=== PATIENT | female | born 1965 | race Caucasian/White ===

== ENCOUNTER 2021-09-20 09:13 | Outpatient (CLI) | payer BC, SELFPAY ==
[2021-09-20 11:20] LABS: Thyroid Stimulating Hormone 0.179 uIU/mL (0.465-4.680)
[2021-09-23 05:25] LABS: Triiodothyronine T3 Free 3.3 pg/mL (2.3-4.2)
== END 2021-09-20 09:14 | disposition home or self-care (01) ==
PROVIDERS: PCP Physician Assistant Medical; Visit Provider Internal Medicine Endocrinology, Diabetes & Metabolism
DX: E04.9 Nontoxic goiter, unspecified (principal); E05.90 Thyrotoxicosis, unspecified without thyrotoxic crisis or storm
CPT/HCPCS: 36415; 84439; 84443; 84481

== ENCOUNTER 2021-12-21 12:53 | Outpatient (CLI) | payer BC, SELFPAY ==
[2021-12-21 14:22] LABS: Thyroid Stimulating Hormone 0.236 uIU/mL (0.465-4.680)
[2021-12-21 15:37] LABS: Free T4 Free Thyroxine 0.84 ng/mL (0.78-2.19)
[2021-12-23 15:20] LABS: Triiodothyronine T3 Free 3.2 pg/mL (2.3-4.2)
== END 2021-12-21 12:54 | disposition home or self-care (01) ==
LOC: ANHLAB 12:55
PROVIDERS: PCP Physician Assistant Medical; Visit Provider Internal Medicine Endocrinology, Diabetes & Metabolism
DX: E04.9 Nontoxic goiter, unspecified (principal); E05.90 Thyrotoxicosis, unspecified without thyrotoxic crisis or storm; E04.1 Nontoxic single thyroid nodule
CPT/HCPCS: 36415; 84439; 84443; 84481

== ENCOUNTER 2021-12-25 12:56 | Outpatient (CLI) | payer BC, SELFPAY ==
--- NOTE | ~2021-12-25 | US_ITS ---
EXAMINATION: US thyroid DATE: 12/25/2021 13:31 INDICATION: Nontoxic single thyroid nodule. TECHNIQUE: Multiple ultrasound images of the thyroid were obtained. COMPARISON: None. FINDINGS: The right thyroid lobe measures 6.0 x 2.1 cm. The left thyroid lobe measures 5.0 x 1.0 cm. In the r ight thyroid lobe, there is a 3.6 cm mixed solid and cystic, hypoechoic, wider than tall nodule with smooth margin without echogenic foci (TI-RADS TR3). In the right thyroid lobe, there is a 1.3 cm pred ominantly solid, hypoechoic, wider than tall nodule with smooth margin without echogenic foci (TR4). In the left thyroid lobe, there is a 1.2 cm predominantly solid, isoechoic, wider than tall nodule wi th ill-defined margin without echogenic foci (TR3). There are multiple subcentimeter nodules in the t hyroid. IMPRESSION: 1. Multinodular goiter. Ultrasound-guided fine-needle aspiration of the 3.6 cm right thyroid nodule i s recommended. Reviewed, dictated and finalized at location A. IMPRESSION: 1. Multinodular goiter. Ultrasound-guided fine-needle aspiration of the 3.6 cm right thyroid nodule is recommended.
== END 2021-12-25 12:57 | disposition home or self-care (01) ==
LOC: ANHIMG 12:57
PROVIDERS: PCP Physician Assistant Medical; Visit Provider Internal Medicine Endocrinology, Diabetes & Metabolism
DX: E05.90 Thyrotoxicosis, unspecified without thyrotoxic crisis or storm (principal); E04.2 Nontoxic multinodular goiter
CPT/HCPCS: 76536

== ENCOUNTER 2022-02-04 14:02 | Outpatient (CLI) | payer BC, SELFPAY ==
--- NOTE | ~2022-02-04 | NM_ITS ---
EXAMINATION: NM thyroid scan w uptake DATE: 02/05/2022 14:54 INDICATION: Subclinical hyperthyroidism. COMPARISON: Ultrasound 12/25/2021 TECHNIQUE: 0.342 mCi I-123 was administered orally. Scintigraphic images of the thyroid gland were o btained at 24 hours. Thyroid uptake was calculated by the technologist. FINDINGS: The thyroid uptake is 25% (normal 10-30%), with the right lobe measuring 21% uptake and the left 4%. The right thyroid lobe is larger than the left by ultrasound. There is no focal area of decreased or increased activity to suggest hypofunctioning or hyperfunctioning nodule. IMPRESSION: 1. Normal 24-hour iodine uptake. Reviewed, dictated and finalized at location A.
== END 2022-02-04 14:03 | disposition home or self-care (01) ==
PROVIDERS: PCP Physician Assistant Medical; Visit Provider Internal Medicine Endocrinology, Diabetes & Metabolism
DX: E05.90 Thyrotoxicosis, unspecified without thyrotoxic crisis or storm (principal)
CPT/HCPCS: 78014; A9516

== ENCOUNTER 2022-06-26 11:28 | Outpatient (CLI) | payer BC, SELFPAY ==
[2022-06-26 11:58] LABS: HDL Direct 67 mg/dL
[2022-06-26 12:10] LABS: LDL Cholesterol Direct 115 mg/dL
[2022-06-26 12:18] LABS: Free T4 Free Thyroxine 0.86 ng/mL (0.78-2.19)
[2022-06-26 12:30] LABS: Thyroid Stimulating Hormone 0.247 uIU/mL (0.465-4.680)
[2022-07-03 05:49] LABS: Triiodothyronine T3 Free 3.5 pg/mL (2.3-4.2)
== END 2022-06-26 11:29 | disposition home or self-care (01) ==
LOC: ANHLAB 11:28
PROVIDERS: PCP Physician Assistant Medical; Visit Provider Internal Medicine Endocrinology, Diabetes & Metabolism
DX: E04.1 Nontoxic single thyroid nodule (principal); E05.90 Thyrotoxicosis, unspecified without thyrotoxic crisis or storm; E04.9 Nontoxic goiter, unspecified
CPT/HCPCS: 36415; 83718; 83721; 84439; 84443; 84481

== ENCOUNTER 2022-12-19 10:58 | Outpatient (CLI) | payer BC, SELFPAY ==
[2022-12-19 12:39] LABS: Thyroid Stimulating Hormone 0.277 uIU/mL (0.465-4.680)
[2022-12-19 12:55] LABS: Free T4 Free Thyroxine 1.16 ng/mL (0.78-2.19)
[2022-12-22 08:10] LABS: Triiodothyronine T3 Free 3.4 pg/mL (2.3-4.2)
== END 2022-12-19 10:59 | disposition home or self-care (01) ==
LOC: ANHLAB 11:00
PROVIDERS: PCP Physician Assistant Medical; Visit Provider Internal Medicine Endocrinology, Diabetes & Metabolism
DX: E04.1 Nontoxic single thyroid nodule (principal); E05.90 Thyrotoxicosis, unspecified without thyrotoxic crisis or storm
CPT/HCPCS: 36415; 84439; 84443; 84481

== ENCOUNTER 2023-07-14 17:11 | Outpatient (CLI) | payer BC, SELFPAY ==
--- NOTE | ~2023-07-14 | US_ITS ---
EXAMINATION: US thyroid DATE: 07/14/2023 18:19 INDICATION: Nontoxic thyroid nodules. TECHNIQUE: Multiple ultrasound images of the thyroid were obtained. COMPARISON: Thyroid ultrasound 12/25/2021 FINDINGS: The right thyroid lobe measures 4.9 x 1.7 x 2.4 cm. The left thyroid lobe measures 4.4 x 1.1 x 1.7 c m. In the right thyroid lobe, there is a 3.8 cm mixed cystic and solid, hypoechoic, wider than tall nodule with ill-defined margin without echogenic foci (TI-RADS TR3), stable from 12/25/21. In the left thyroid lobe, there is a 13 mm mixed cystic and solid, isoechoic, wider than tall nodule with ill-de fined margin without echogenic foci (TR2). There are multiple subcentimeter nodules in the thyroid. IMPRESSION: 1. Multinodular goiter. Ultrasound-guided aspiration of the 3.8 cm right thyroid nodule is recommende d if not previously performed. Reviewed, dictated and finalized at location A. IMPRESSION: 1. Multinodular goiter. Ultrasound-guided aspiration of the 3.8 cm right thyroi d nodule is recommended if not previously performed.
== END 2023-07-14 17:12 | disposition home or self-care (01) ==
LOC: ANHIMG 17:13
PROVIDERS: PCP Physician Assistant Medical; Visit Provider Internal Medicine Endocrinology, Diabetes & Metabolism
DX: E04.2 Nontoxic multinodular goiter (principal)
CPT/HCPCS: 76536

== ENCOUNTER 2023-07-24 15:12 | Outpatient (CLI) | payer BC, SELFPAY ==
[2023-07-24 17:31] LABS: Free T4 Free Thyroxine 0.87 ng/mL (0.78-2.19)
[2023-07-24 17:46] LABS: Thyroid Stimulating Hormone 0.284 uIU/mL (0.465-4.680)
[2023-07-26 02:19] LABS: Triiodothyronine T3 Free 3.4 pg/mL (2.3-4.2)
== END 2023-07-24 15:13 | disposition home or self-care (01) ==
LOC: ANHWCLAB 15:13
PROVIDERS: PCP Physician Assistant Medical; Visit Provider Internal Medicine Endocrinology, Diabetes & Metabolism
DX: E04.9 Nontoxic goiter, unspecified (principal); E05.90 Thyrotoxicosis, unspecified without thyrotoxic crisis or storm
CPT/HCPCS: 36415; 84439; 84443; 84481

== ENCOUNTER 2024-01-23 11:42 | Outpatient (CLI) | payer BC, SELFPAY ==
[2024-01-23 12:50] LABS: Free T4 Free Thyroxine 0.89 ng/mL (0.78-2.19)
[2024-01-23 12:58] LABS: Thyroid Stimulating Hormone 0.579 uIU/mL (0.465-4.680)
[2024-01-24 09:34] LABS: Triiodothyronine T3 Free 3.6 pg/mL (2.3-4.2)
== END 2024-01-23 11:43 | disposition home or self-care (01) ==
LOC: ANHLAB 11:43
PROVIDERS: PCP Physician Assistant Medical; Visit Provider Internal Medicine Endocrinology, Diabetes & Metabolism
DX: E04.9 Nontoxic goiter, unspecified (principal); E05.90 Thyrotoxicosis, unspecified without thyrotoxic crisis or storm
CPT/HCPCS: 36415; 84439; 84443; 84481

== ENCOUNTER 2024-07-21 10:57 | Outpatient (CLI) | payer BC, SELFPAY ==
[2024-07-21 12:09] LABS: Thyroid Stimulating Hormone 0.368 uIU/mL (0.465-4.680)
--- OUTSIDE RECORDS SUMMARY | 2024-07-21 12:42 | XMS_ITS | Encounter Summary ---
Author Organization [facility] Address [address] [place] [address] Care Team Providers Care Business Applications Analyst Name Role Phone Marguerite Alonso PA-C Primary Care Provider [phone]- [phone] Halima Peralta Primary Care Provider Encounter Details Date Type Department Care Team (Late st Contact Info) Description 09/19/2018 Abstract [facility] CONVERSION [address] [place], [place] [id number] , Generic ConversionMD Social History Tobacco Use Types Packs/Day Years Used Date Smoking Tobacco: Never Assessed Comments Unknown Sex and Gender Information Value Date Recorded Sex Assigned at Not on file Legal Sex Female 4:17 PM CDT Gender Identity Female 07/04/2021 9:16 AM CDT Sexual Orientation Straight 07/04/2021 9: 16 AM CDT documented as of this encounter Plan of Treatment Not on file documented as of this encounter Visit Diagnoses Not on filedocumented in this encounter Care Teams Business Applications Analyst Relationship Specialty Start Date End Date Marguerite Alonso PA-C PCP - General 02/20/16 01/30/23 Halima Peralta PA [address] [place] [id number] PCP - General 01/31/23 documented as of this encounter
--- OUTSIDE RECORDS SUMMARY | 2024-07-21 12:42 | XMS_ITS | Clinical Summary ---
Author Organization [facility] Address [address] [place] [address] Care Team Providers Care Cashier Greeter Name Role Phone Nina Peralta Primary Care Provider Allergies No known active allergies Medications vitamin D2, ergocalciferol, (DRISDOL) 1.25 mg capsule Take 1 capsule (1.25 mg total) by mouth every 30 (thirty) days. Active hydroxychloroqu ine (PLAQUENIL) 200 MG tablet Take 1 tablet (200 mg total) by mouth 2 (two) times daily. Active Ivermectin 1 % Cream Apply topically as needed. Active ivermectin (STROMECTOL) 3 MG Tab tablet Take 4 tablets (12 mg total) by mouth as needed. Active mulitvitamin (THERA) tablet Take 1 tablet by mouth. Active sertraline (ZOLOFT) 25 MG tablet Take 1 tablet (25 mg total) by mouth daily. Active Active Problems No known active problems Immunizations Name Administration Dates Next Due MODERNA COVID-19 (12+) MRNA, LNP-S, PF, 100 MCG/ 0.5 ML DOSE 08/01/2020,07/04/2020 Family History Medical History Relation Comments Cancer Maternal Grandmother LEUKEMIA Relation Status Comments Maternal Grandmother Social History Tobacco Use Types Packs/Day Years Used Date Smoking Tobacco: Never Smokeless Tobacco: Never Tobacco Cessation:Counseling Given: No Alcohol Use Standard Drinks/Week Comments Never 0 (1 standard drink = 0.6 oz pur e alcohol) PHQ-2 Answer Date Recorded Patient Health Questionnaire-2 Score 0 03/21/2023 Comments No Sex and Gender Information Value Date Recorded Sex Assigned at Not on file Legal Sex Female 4:17 PM CDT Gender Identity Female 07/04/2021 9:16 AM CDT Sexual Orientation Straight 07/04/2021 9: 16 AM CDT Last Filed Vital Signs Vital Sign Reading Time Taken Comments Blood Pressure 142/89 03/21/2023 3:16 PM CONCESSION ATTENDANT Pulse 76 03/21/2023 3:11 PM CONCESSION ATTENDANT Temperature 37.3 C (99.2 F) 03/21/2023 3:11 PM CONCESSION ATTENDANT Respiratory Rate 18 03/21/2023 3:11 PM CONCESSION ATTENDANT Oxygen Saturation 98% 03/21/2023 3:11 PM CONCESSION ATTENDANT Inhaled Oxygen Concentration - - Weight 91.6 kg (202 lb) 03/21/2023 3:11 PM CONCESSION ATTENDANT Height 165.1 cm (5' 5 ) 03/21/2023 3:11 PM CONCESSION ATTENDANT Body Mass Index 33.61 03/21/2023 3:11 PM CONCESSION ATTENDANT Plan of Treatment Health Maintenance Due Date Last Done Comments Cervical Cancer Screening Pa p Smear (Age 30 to 64) Every 3 Years 1965 Colorectal Cancer Screening Colonoscopy (10 Years) 1965 Annual Physical 1968 Hepatitis C 07/01/1983 DTaP, Tdap and Td Vaccines ( 1 - Tdap) 1984 Hepatitis B Vaccines (1 of 3 - + 3-dose series) 1984 Cervical Cancer Screening Pa p with HPV Testing (Age 30 to 64) Every 5 Years 07/01/1995 Cervical Cancer Screening wi th HPV 07/01/1995 Zoster Vaccines (1 of 2) 07/01/2015 COVID-19 Vaccine (2023-2 5 season) 2023 08/01/2020, 07/04/2020 PHQ-2 (Physician Everly) 04/14/2024 03/21/2023 Mammogram Screening 02/18/2025 02/18/2023, 02/08/2021 Meningococcal B Vaccine Aged Out No l onger eligible based on patient's age to complete this topic Meningococcal Vaccine Aged Out No amaury jose r eligible based on patient's age to complete this topic Pneumococcal Vaccine: Pediatrics (0 to 5 Years) and At-Risk Patients (6 to 64 Years) Aged Out No longer eligible b ased on patient's age to complete this topic RSV Immunizations Under 20 Months Aged Out No longer eligible b ased on patient's age to complete this topic Procedures Procedure Name Priority Date/Time Associated Diagnosis Comments MG SCREENING W MANUELA SHARLENE DIGI Routine 02/18/2023 2:30 PM CONCESSION ATTENDANT Encounter for screening mammogram for malignant neoplasm of breast from Last 3 Months or Most Recently Relevant to Health Maintenance Results * MG SCREENING W MANUELA SHARLENE DIGI (02/18/2023 2:30 PM CONCESSION ATTENDANT) Anatomical Region Laterality Modality Breast Bilateral Mammography 02/18/2023 2:47 PM CONCESSION ATTENDANT Narrative 02/18/2023 2:49 PM CONCESSION ATTENDANT Examination: Screening bilateral mammogram Exam Date/Time: 02/18/2023 2:18 PM Clinical history: No current complaints. Comparison: 02/08/2021 Technique: Digital screening mammography of both breasts was performed. Breast tomosynthesis acquisitions were obtained and reviewed. This study was read with the assistance of a computer-aided detection system. Tissue density: There are scattered areas of fibroglandular density. Findings: No suspicious masses, malignant appearing calcifications, skin thickening or other abnormalities are present. No significant change from the prior exam. IMPRESSION: No suspicious mammographic findings. Recommendation: 1. Routine Screening, Bilateral Assessment: ACR BI-RADS 2 - BENIGN FINDING(S) Ordered By: NINA PERALTA Interpreted By: Cruz Garcia, 02/18/2023 2:47 PM Nina ROY MAMMO Final Result from Last 3 Months or Most Recently Relevant to Health Maintenance Insurance [facility] Care Teams Cashier Greeter Relationship Specialty Start Date End Date Nina Peralta PA [address] [place] [phone] PCP - General 01/31/23
--- OUTSIDE RECORDS SUMMARY | 2024-07-21 12:42 | XMS_ITS | Data Portability ---
Author Organization [facility] Address [address] [place] [address] Assessment No assessment recorded. Plan of Treatment Reminders Order Date Submit Date Provider Last Modified By Organization Details Last Modified Time Details Appointments None recorded. Lab HPV E6+E7 mRNA, qualitative PCR, cervix 2023 024 [facility], [address] [place], [address], 4 09:15:23 pap, LB 2023 024 [facility], [address] [place], [address], 4 09:33:16 Referral None recorded. Procedures None recorded. Surgeries None recorded. Imaging None recorded. Medication Orders None recorded. Patient TargetsNo targets recorded. Patient Instructions Encounter Date Encounter Id Patient Instructions Last Modified By Organization Details Last Modified Time 03/22/2024 [id number] body mass index: care instructions [email or web address] Not available 03/22/2024 16:30:24 Reason for Referral None Reported. Results Created Date Observation Date Name Description Value Unit Range Abnormal Flag Note LastModifiedBy Organization Detail LastModifiedTime 03/22/20 24 03/24/2024 HPV HIGH RISK HPV high risk Negati ve negati ve normal The HPV High Risk assay is inten ded for use as co-te sting with cytol ogy and not as a subst itute for regul ar cervi stephane cytol ogy scree venita. This assay is not inten ded for use as a scree venita devic e for women under age 30 with mikal l cervi stephane cytol ogy. Not Available [employer] [address] [place], [address], 03/25/2024 09:15:23 03/22/2004/02/2024 THINP REP TIS PAP clinical information: normal None given Not Available [place] [address] [place], [address], 04/02/2024 09:33:16 03/22/20 24 04/02/2024 THINP REP TIS PAP LMP: normal NONE GIVEN Not Available [address] [address] [place], [address], 04/02/2024 09:33:16 03/22/20 24 04/02/2024 THINP REP TIS PAP prev. Pap: normal NONE GIVEN Not Available [address] [address] [place], [address], 04/02/2024 09:33:16 03/22/20 24 04/02/2024 THINP REP TIS PAP prev. BX: normal NONE GIVEN Not Available [address] [address] [place], [address], 04/02/2024 09:33:16 03/22/20 24 04/02/2024 THINP REP TIS PAP source: normal Cervi x Not Available [address] [address] [place], [address], 04/02/2024 09:33:16 03/22/20 24 04/02/2024 THINP REP TIS PAP statement of adequacy: Speci men proce ssed and exami otf, but unsat isfac tory for evalu ation due to an insuf ficie nt numbe r of squam ous cells . Not Available [address] [address] [place], [address], 04/02/2024 09:33:16 03/22/20 24 04/02/2024 THINP REP TIS PAP interpretati on/result: Cytol ogy Resul ts: Unabl e to provi de inter preta tion due to unsat isfac tory speci men adequ acy. Not Available [facility] [address] [place], [address], 04/02/2024 09:33:16 03/22/20 24 04/02/2024 THINP REP TIS PAP comment: normal This Pap test has been evalu ated with compu ter buddy princess [employer] o[employer] . Micro scopi c featu res prese nt sugge stive of an inter ferin g subst ance, inclu ding cellu lar debri s, mucus , or possi ble lubri cant (dede ent or provi kit use). Use of lubri cant is not recom mayra d. Not Available [address] [address] [place], [address], 04/02/2024 09:33:16 03/22/20 24 04/02/2024 THINP REP TIS PAP cytotechnolo gist: normal YQ, CT( CP) CT scree venita locat ion: [place] [address] [address] [place] [address] Not Available [employer] [address] [address] [place], [address], 04/02/2024 09:33:16 03/22/20 24 04/02/2024 THINP REP TIS PAP review cytotechnolo gist: normal SHERMAN, CT( CP) CT Scree venita locat ion: [address] [place] [address] Not Available [address] [address] [place], [address], 04/02/2024 09:33:16 03/22/20 24 04/02/2024 THINP REP TIS PAP comment EXPLA NATOR Y NOTE: The Pap is a scree venita test for cervi stephane cance r. It is not a diagn ostic test and is subje ct to false negat sterling and false posit sterling resul ts. It is most relia ble when a satis facto ry sampl e, regul kurt obtai otf, is submi tted with relev ant clini stephane findi ngs and histo ry, and when the Pap resul t is evalu ated along with histo kay and curre nt clini stephane infor jericho n. Not Available [facility] [address] [address], [place], [address], 04/02/2024 09:33:16 Result Notes None recorded. Problems Name Problem SNOMED Code Status Onset Date Resolution Date Notes Provider Name and Address Organization Details Recorded Time Sampling of vagina for Papanicola ou smear Active 2020 Encounter for gynecologic al examination (general) (routine) without abnormal findings; Progress: Stable Added By: Rocío Burnette Add to Current Problems: YES ProblemStat us: Current Not Available [facility] 2 21:54:47 Screening for malignant neoplasm of cervix Active 2020 Encounter for screening for malignant neoplasm of cervix; Progress: Stable Added By: Rocío Burnette Add to Current Problems: YES ProblemStat us: Current Not Available [facility] 2 21:54:47 Problem Notes None recorded. Procedures Surgical History Date Name Laterality Status Provider Name and Address Organization Details Recorded Time 4 Date of Last Pap Smear completed ZACK SANABRIA DO [facility], [place], [address], [facility] 04/10/2024 11:17:45 3 Most Recent Mammogram completed [employer] [facility] 03/22/2024 15:40:32 2 Date of Last Colonoscopy completed [employer] [facility] 03/22/2024 15:53:27 9 Most Recent Bone Density completed [employer] [facility] 03/22/2024 15:40:32 Gall bladder completed [employer] [facility] 03/22/2024 15:40:55 Imaging Results None recorded. Procedure Notes None recorded. Medical Equipment None Reported. Allergies No known drug allergies Medications Name Sig Start Date Stop Date Status Note LastModified by Organization Details LastModified Time meloxicam 15 mg tablet take 1 tablet (15 mg) by oral route once daily 03/22 completed meloxica m 15 mg oral tablet RxNorm: [id number] Refill Denied: No Refill DateOccu rred: 01/30/20 21 Edited by: Lay Hanson ) on 01/30/20 21 Stopped by: Lay Hanson ) on Not Available Not Available Not Available sertralin e 25 mg tablet TAKE 1 TABLET BY MOUTH EVERY DAY 03/22 completed Not Available Not Available Not Available ergocalci ferol (vitamin D2) 1,250 mcg (50,000 unit) capsule TAKE 1 CAPSULE BY MOUTH ONCE MONTHLY active Not Available Not Available No t Available hydroxych loroquine 200 mg tablet TAKE 1 TABLET BY MOUTH TWICE A DAY active Not Available Not Available No t Available amoxicill in 875 mg-potass ium clavulana te 125 mg tablet TAKE 1 TABLET BY MOUTH TWICE A DAY FOR 10 DAYS 03/22 completed Not Available Not Available Not Available ivermecti n 1 % topical cream APPLY A PEA-SIZE D AMOUNT BY TOPICAL ROUTE ONCE DAILY NEEDED TO COVER AREAS OF FACE WITH THIN LAYER AVOIDING THE EYES AND LIPS active Not Available Not Available No t Available Vitals Date Recorded Body height Body mass index (BMI) Body weight Body temperature Systolic blood pressure Diastolic blood pressure Provider Name and Address Organization Details Last Updated DateTime 4 165.1 cm 33.6 kg/m2 95055.3 8 g 97.7 [degF] 122 mm[Hg] 68 mm[Hg] Tammy Mares [facility] 4 15:50:53 Social History Question Answer Notes LastModified by Organizat ion Details LastModified Time Tobacco Smoking Status Never Smoker Tammy stewart, [employer] [facility] 03/22/2024 15:40:48 What Is Your Level Of Alcohol Consumption? Occasional Information not available 03/22/2024 Are You Blind Or Do You Have Difficulty Seeing? No Information not available 03/22/2024 Are You Currently Employed? Yes Information not available 03/22/2024 Are You Deaf Or Do You Have Serious Difficulty Hearing? No Information not available 03/22/2024 What Type Of Diet Are You Following? REGULAR Information not available 03/22/2024 How Many Children Do You Have? 3 Information not available 03/22/2024 Are There Any Occupational Health Risks Where You Work? No Information not available 03/22/2024 What Is Your Relationship Status? Information not available 03/22/2024 Are You Sexually Active? Yes Information not available 03/22/2024 What Types Of Sporting Activities Do You Participate In? Walking Information not available 03/22/2024 Do You Use Any Illicit Or Recreational Drugs? No Information not available 03/22/2024 Sex: Unknown Functional Status Question Answer Note LastModified by Organizat ion Details LastModified Time What is your exercise level? Occasional Information not available 03/22/2024 Mental Status None recorded. Family History Relationship Description Onset Age of this Age Resolved Age Notes LastModified by Organization Details LastModified Time Mother Malignant neoplastic disease Not available 03/22 15:40:25 Maternal Grandmother Malignant neoplastic disease Not available 03/22 15:40:25 Medical History Condition Response Autoimmune disease Y Arthritis Y Hyperthyroidism Y Gynecological History Statement/Question Response Flow Date of last HPV 03/22/2024 Date of LMP 04/14/2016 Duration of Flow (days) Most Recent Mammogram 02/18/2023 Current Control Method None Age at Menarche 16 If Post Menopausal, Age at Menopause 50 Date of Last Colonoscopy 03/24/2022 Most Recent Bone Density 08/04/2018 Frequency of Cycle (Q days) Date of Last Pap Smear 03/23/2024 Obstetrics History GPAL:G 3 P 3 0 0 3 Type Value Full Term 3 Living 3 Total 3 Past Encounters Encounter ID Performer Location Encounter Start Date Encounter Closed Date Diagnosis/Indication Diagnosis SNOMED-CT Code Diagnosis ICD10 Code Diagnosis Note [id number] ZACK SANABRIA DO [facility] [address] [place] [address] 03/22/2024 15:28:44 03/22/2024 16:33:11 Gynecologic examination 09252794 Z01.419 58 y.o. here for annual exam.- Pap w/ HPV completed today- Routine labs done with PCP- Mammo 2022 WNL, discussed different guideline recommendtonya helm pt without family hx, would like to proceed with q2yr screening- Colonoscop y done 2021, can continue q10 years screens- DEXA at age 65- Depression screen NEG- BMI counseling , diet and exercise reviewed- RTO for annual or PRN Screening for malignant neoplasm of cervix 204204199 Z12.4 Screening for malignant neoplasm of breast 378220592 Z12.31 Depression screening 171 247022 Z13.31 refer to intake screening Health Concerns Section Related Observation LastModified by Organization Detai ls LastModified Time None Recorded Concern Status LastModified by Organization Details LastModified Time None Recorded Advance Directives Directive None Recorded Payers Encounter Date Sequence Insurance Name Policy Number Policy Griffin Covered Member ID Griffin Member ID Guarantor Name 03/22/2024 1 [place] [id number] Paddy Whaley [id number] Haylee Whaley Notes Date Note Type Note Provider Name and Address Organization Details Recorded Time 03/22/2024 text/html Annual GYNReport ed bypatient.History:n o gynecologic complaints; no change in interval history Menstrual cycle:MENOPAUSE Urinary symptoms:No hematuria; No incontinence Vulva:No genital lesion Vagina:Normal vaginal discharge Breast:No breast pain; No breast lump; No nipple discharge Current Contraception:Satis fied with current contraception Sexual complaints:No sexual complaints; No pain during intercourse; Normal libido Menopausal Symptoms:No menopausal symptoms; Normal vaginal lubrication Psychological symptoms:No depression; No PMDD ZACK SANABRIA, [address] [facility], [place], [address], [facility] - [facility] 03/22/2024 16:31:04 OBGyn Episode No OBEpisode recorded.
--- OUTSIDE RECORDS SUMMARY | 2024-07-21 12:42 | XMS_ITS | Encounter Summary ---
Author Organization [facility] Address [address] [place] [address] Care Team Providers Care Etiquette Coach Name Role Phone Unavailable Primary Care Provider Unavailabl e Encounter Details Date Type Department Care Team (Late st Contact Info) Description 12/31/2023 Lab Requisition [facility] - DermPath Lab [address] [facility], [place] [address] Jyoti Hunt MD [address] [facility] 3L [place] [address] Social History Tobacco Use Types Packs/Day Years Used Date Smoking Tobacco: Never Assessed Sex and Gender Information Value Date Recorded Sex Assigned at Not on file Gender Identity Not on file Sexual Orientation Not on file documented as of this encounter Plan of Treatment Not on file documented as of this encounter Procedures Procedure Name Priority Date/Time Associated Diagnosis Comments DERMATOPATHOLOGY Routine 12/31/2023 2:24 PM CDT documented in this encounter Results * DERMATOPATHOLOGY (12/31/2023 2:24 PM CDT) Case Report Dermatopathology Report Case: [id number] Authorizing Provider: Jyoti Hunt MD Collected: 12/31/2023 02:24 PM Ordering Location: [facility] Physician [facility] - Received: 01/02/2024 07:36 AM DermPath Lab Pathologist: Marquita Walker MD Specimen: Skin, mid back 12:44 PM CDT DERMATOPATHOLOGY LABORATORY Final Diagnosis Specimen A. SKIN, mid back: LENTIGINOUS MELANOCYTIC NEVUS, COMPOUND TYPE, IRRITATED (D22.5) (see microscopic description) 12:44 PM CDT DERMATOPATHOLOGY LABORATORY Clinical History Brown papule nevus r/o atypia 4 12:44 PM CDT DERMATOPATHOLOGY LABORATORY Gross Description Specimen A: Received is one formalin filled container labeled with the patient's name and designated mid back. The specimen consists of a shave biopsy measuring 8x8x2 mm. Jar 0. 4 12:44 PM CDT DERMATOPATHOLOGY LABORATORY Microscopic Description Specimen A. SKIN, mid back: This is a compound nevus. There is melanin pigment within the stratum corneum. There is a lentiginous proliferation of melanocytes between nests of cells along the dermal-epidermal junction, highlighted by MART-1/Melan-A immunohistochemical staining. There is underlying fibroplasia of the papillary dermis. The intradermal component is bland appearance and matures with depth. Some melanocytes are splayed between collagen bundles and are localized around adnexal structures, consistent with focal congenital features. (Compound Elio's Nevus) 12:44 PM CDT DERMATOPATHOLOGY LABORATORY Disclaimer An external and internal positive and negative controls are appropriate for the histochemical, immunohistochemical and immunofluorescence stain(s) in this case (if any), except where stated explicitly. The performance characteristics of the stain(s) cited in this report were developed and its performance characteristic determined by the Dermatopathology Laboratory at [facility], directed by Dr. Parish Stringer. These tests need not be, and therefore are not, approved by the [place] Food and Drug Administration. The tests are used for clinical purposes. Billing Codes Specimen Charges Stain Charges 32392 1 23503 1 4 12:44 PM CDT DERMATOPATHOLOGY LABORATORY Embedded Images 4 12:44 PM CDT DERMATOPATHOLOGY LABORATORY Pathology/Cytolo gy TISSUE SPECIMEN FROM SKIN / Unknown 12/31/2023 2:24 PM CDT 01/02/2024 7:36 AM CDT Jyoti Hunt MD LAB - PATHOLOGY/CYTO LOGY ORDERABLES DERMATOPATHOLOGY LABORATORY [facility] - Department of Dermatology [address], [address] [phone] documented in this encounter Visit Diagnoses Not on filedocumented in this encounter
--- OUTSIDE RECORDS SUMMARY | 2024-07-21 12:42 | XMS_ITS | Encounter Summary ---
Author Organization [facility] Address [address] [place] [address] Care Team Providers Care Mental Health Worker Name Role Phone Unavailable Primary Care Provider Unavailabl e Encounter Details Date Type Department Care Team (Late st Contact Info) Description 12/22/2018 Lab Requisition [facility] DermPath Lab [address] [facility], [place] [id number] Jyoti Hunt MD [address] [facility] 3 [place] [address] Social History Tobacco Use Types Packs/Day Years Used Date Smoking Tobacco: Never Assessed Sex and Gender Information Value Date Recorded Sex Assigned at Not on file Gender Identity Not on file Sexual Orientation Not on file documented as of this encounter Plan of Treatment Not on file documented as of this encounter Procedures Procedure Name Priority Date/Time Associated Diagnosis Comments DERMATOPATH TECHNICAL REPORT Routine 12/21/2018 12:00 AM CDT documented in this encounter Results * DERMATOPATH TECHNICAL REPORT (12/21/2018 12:00 AM CDT) Case Report Dermatopathology Report Case: [id number] Authorizing Provider: Jyoti Hunt MD Collected: 12/21/2018 12:00 AM Ordering Location: [facility] DermPath Lab Received: 12/22/2018 12:12 PM Pathologist: Ryann Guaman MD Specimen: Skin, right cheek 9 1:39 PM CDT DERMATOPATHOLOGY LABORATORY Addendum 1 At the request of the diagnosing physician, the technical component for a GMS and a Gram test was performed by [facility] Dermatopathology Laboratory. 9 1:39 PM CDT DERMATOPATHOLOGY LABORATORY Addendum electronically signed by Ryann Guaman MD on 12/28/2018 at 1:39 PM Clinical History R/O rosacea vs CTD. Hx of RA, new rash of cheeks and nose, pink papules. 1:39 PM CDT DERMATOPATHOLOGY LABORATORY Gross Description Specimen A: Received is one formalin filled container labeled with the patient's name and designated right cheek. The specimen consists of a punch measuring 9s1p8qm. Jar 0. [facility] Dermatopathology Laboratory performed the technical component only. 1:39 PM CDT DERMATOPATHOLOGY LABORATORY Embedded Images 1:39 PM CDT DERMATOPATHOLOGY LABORATORY DISCLAIMER An external and internal positive and negative controls are appropriate for the histochemical, immunohistochemical and immunofluorescence stain(s) in this case (if any), except where stated explicitly. The performance characteristics of the stain(s) cited in this report were developed and its performance characteristic determined by the Dermatopathology Laboratory at [facility], directed by Dr. Parish Stringer. These tests need not be, and therefore are not, approved by the [place] Food and Drug Administration. The tests are used for clinical purposes. 1:39 PM CDT DERMATOPATHOLOGY LABORATORY Pathology/Cytolog y TISSUE SPECIMEN FROM SKIN / Unknown 12/21/2018 12/22/2018 12:12 PM CDT Jyoti Hunt MD LAB - PATHOLOGY/CYTO LOGY ORDERABLES DERMATOPATHOLOGY LABORATORY [facility] - Department of Dermatology [address] [place] [address] 5th Floor Lab [address] [place], [place] [address] [phone] documented in this encounter Visit Diagnoses Not on filedocumented in this encounter
--- OUTSIDE RECORDS SUMMARY | 2024-07-21 12:42 | XMS_ITS | Clinical Summary ---
Author Organization [facility] Address [address] [place] [address] Care Team Providers Care Washing Tub Operator Name Role Phone Unavailable Primary Care Provider Unavailabl e Source Comments [facility],non-owned Affiliates and Associated Physician Practices is amultiple site organization consisting of ambulatory clinics and hospital sitesin [place], [place], [place] and [place]. This disclosure is being madepursuant to the Care Everywhere program and may not contain all information available regarding this patient. Last updated 18.[facility] Social History Tobacco Use Types Packs/Day Years Used Date Smoking Tobacco: Never Assessed Sex and Gender Information Value Date Recorded Sex Assigned at Not on file Gender Identity Not on file Sexual Orientation Not on file Plan of Treatment Health Maintenance Due Date Last Done Comments COLOGUARD (AGES 45-75) - COL ON CA SCREENING 1965 COLON MONITORING 1965 COLONOSCOPY - COLON CA SCREENING 1965 CT COLONOGRAPHY - COLON CA SCREENING 1965 Colorectal Cancer Screening 1965 FIT - COLON CA SCREENING 1965 FLEX SIG - COLON CA SCREENING 1965 LIPID TESTING 1965 MAMMOGRAM 1965 PAP SMEAR 1965 HIV SCREENING 1980 HEPATITIS C SCREENING 06/26/1983 DTAP/TDAP/TD VACCINES (1 - Tdap) 1984 HEPATITIS B VACCINE (1 of 3 - 19+ 3-dose series) 1984 PNEUMOCOCCAL VACCINE 50+ (1 of 1 - PCV) 07/01/2015 ZOSTER VACCINE (1 of 2) 07/01/2015 COVID-19 VACCINE (1 - 2023-2 5 season) 2023 DEPRESSION SCREENING 04/14/2024 INFLUENZA VACCINE (Season Ended) 2024 HIB VACCINE Aged Out No longer eligi ble based on patient's age to complete this topic HPV VACCINE Aged Out No longer eligi ble based on patient's age to complete this topic MENINGOCOCCAL (Group B) VACC INE SHARED DECISION-MAKING Aged Out No longer eligibl e based on patient's age to complete this topic MENINGOCOCCAL GROUPS A/C/Y/W VACCINE Aged Out No longer eligible b ased on patient's age to complete this topic PNEUMOCOCCAL VACCINE Aged Out No long er eligible based on patient's age to complete this topic Haylee Whaley Personal/Family Self 1965
[2024-07-21 13:50] LABS: Free T4 Free Thyroxine 0.92 ng/dL (0.78-2.19)
== END 2024-07-21 10:58 | disposition home or self-care (01) ==
LOC: ANHLAB 10:59
PROVIDERS: PCP Physician Assistant Medical; Visit Provider Internal Medicine Endocrinology, Diabetes & Metabolism
DX: E05.90 Thyrotoxicosis, unspecified without thyrotoxic crisis or storm (principal)
CPT/HCPCS: 36415; 84439; 84443

== ENCOUNTER 2024-08-12 09:32 | Outpatient (CLI) | payer BC, SELFPAY ==
--- NOTE | ~2024-08-12 | US_ITS ---
EXAMINATION: US thyroid DATE: 08/12/2024 11:06 INDICATION: Nontoxic multinodular goiter TECHNIQUE: Multiple ultrasound images of the thyroid were obtained. COMPARISON: 07/14/2023 FINDINGS: The right thyroid lobe measures 5.2 x 1.8 x 3.1 cm. Within the upper pole of the right lobe of the thyroid gland is a 3.3 x 1.3 x 2.4 cm nodule: Composition -mixed cystic and solid (1) Echogenicity -hyperechoic or isoechoic (1) Shape - wider than tall Margin - smooth Echogenic foci - none. = TR2 not suspicious. The left thyroid lobe measures cm. Within the left lobe of the thyroid gland is a 19 x 11 x 13 mm nodule: Composition -mixed cystic and solid (1) Echogenicity -hyperechoic or isoechoic (1) Shape - wider than tall Margin - smooth Echogenic foci - none. = TR2 not suspicious. The isthmus measures 0.2cm in anterior to posterior dimension. There is otherwise heterogeneous echotexture throughout the remainder of the thyroid gland. No discre te nodules identified. Increased vascular flow is present suggesting thyroiditis. IMPRESSION: TR2 nodules within the right and left lobes of the thyroid gland. These nodules are not sonographically suspicious and no FNA is recommended Follow-up may be performed. Reviewed, dictated and finalized at location A.
--- OUTSIDE RECORDS SUMMARY | 2024-08-12 10:04 | XMS_ITS | Clinical Summary ---
Author Organization [facility] Address [facility] [place] [address] Care Team Providers Care Ventilation Worker Name Role Phone Nina Peralta Primary Care Provider [phone] Allergies No known active allergies Medications vitamin [...] Active Problems No known active problems Immunizations Immunization Administration Dates Next Due MODERNA COVID-19 (12+) [...] Comments Blood Pressure 142/89 03/21/2023 3:16 PM SKIN FITTER Pulse 76 03/21/2023 3:11 PM SKIN FITTER Temperature 37.3 C (99.2 F) 03/21/2023 3:11 PM SKIN FITTER Respiratory Rate 18 03/21/2023 3:11 PM SKIN FITTER Oxygen Saturation 98% 03/21/2023 3:11 PM SKIN FITTER Inhaled Oxygen Concentration - - Weight 91.6 kg (202 lb) 03/21/2023 3:11 PM SKIN FITTER Height 165.1 cm (5' 5 ) 03/21/2023 3:11 PM SKIN FITTER Body Mass Index 33.61 03/21/2023 3:11 PM SKIN FITTER Plan of Treatment Health Maintenance Due Date Last Done Comments Cervical Cancer Screening Pa p Smear (Age 30 to 64) Every 3 Years 1965 Colorectal Cancer Screening Colonoscopy (10 Years) 1965 Annual Physical 1968 Hepatitis C 07/01/1983 DTaP, Tdap and Td Vaccines ( 1 - Tdap) 1984 Cervical Cancer Screening Pa p with HPV Testing (Age 30 to 64) Every 5 Years 07/01/1995 Cervical Cancer Screening wi th HPV 07/01/1995 Pneumococcal Vaccine: 50+ Years (1 of 1 - PCV) 07/01/2015 Zoster Vaccines (1 of 2) 07/01/2015 COVID-19 Vaccine (2023-2 5 season) 2023 08/01/2020, 07/04/2020 PHQ-2 (Physician Bryan) 04/14/2024 03/21/2023 Mammogram Screening 02/18/2025 02/18/2023, 02/08/2021 [...] MANUELA SHARLENE DIGI Routine 02/18/2023 2:30 PM SKIN FITTER Encounter for screening mammogram for malignant neoplasm of breast from Last 3 Months or Most Recently Relevant to Health Maintenance Results * MG SCREENING W MANUELA SHARLENE DIGI (02/18/2023 2:30 PM SKIN FITTER) Anatomical Region Laterality Modality Breast Bilateral Mammography 02/18/2023 2:47 PM SKIN FITTER Narrative 02/18/2023 2:49 PM SKIN FITTER Examination: Screening bilateral mammogram Exam Date/Time: 02/18/2023 [...] Most Recently Relevant to Health Maintenance Insurance [facility] Care Teams Ventilation Worker Relationship Specialty Start Date End Date Nina Peralta PA [address] [place] [id number] PCP - General 01/31/23
--- OUTSIDE RECORDS SUMMARY | 2024-08-12 10:04 | XMS_ITS | Encounter Summary ---
Author Organization [facility] Address [address] [place] [address] Care Team Providers Care Preservationist Name Role Phone Unavailable Primary Care Provider Unavailabl e Encounter Details Date Type Department Care Team (Late st Contact Info) Description 12/31/2023 Lab Requisition [facility] Physician [facility] - DermPath Lab [address] [facility], [place] [address] Jyoti Hunt MD [address] [facility] 3 [place] [address] Social History Tobacco Use Types Packs/Day Years Used Date Smoking Tobacco: Never Assessed Comments Unknown Sex and Gender Information Value Date Recorded Sex Assigned at Not on file Legal Sex Female 2:32 PM CDT Gender Identity Not on file Sexual Orientation Not on file documented as of this encounter Plan of Treatment Not on file documented as of this encounter Procedures Procedure Name Priority Date/Time Associated Diagnosis Comments DERMATOPATHOLOGY Routine 12/31/2023 2:24 PM CDT documented in this encounter Results * DERMATOPATHOLOGY (12/31/2023 2:24 PM CDT) Case Report Dermatopathology Report Case: [id number] Authorizing Provider: Jyoti Hunt MD Collected: 12/31/2023 02:24 PM Ordering Location: [facility] Physician [facility] - Received: 01/02/2024 07:36 AM DermPath [...] characteristic determined by the Dermatopathology Laboratory at [facility], directed by Dr. Parish Stringer. These tests need not be, and therefore are not, approved by the [place] Food and Drug Administration. The tests are used for clinical purposes. Billing Codes Specimen Charges Stain Charges 99624 1 37583 1 4 12:44 PM CDT DERMATOPATHOLOGY LABORATORY Embedded Images 4 12:44 PM CDT DERMATOPATHOLOGY LABORATORY Pathology/Cytolo gy TISSUE SPECIMEN FROM SKIN / Unknown 12/31/2023 2:24 PM CDT 01/02/2024 7:36 AM CDT us Jyoti Hunt MD LAB - PATHOLOGY/CYTOLOGY ORD ERABLES Final Result DERMATOPATHOLOGY LABORATORY [facility] - Department of Dermatology [address], [address] [phone] documented in this encounter Visit Diagnoses Not on filedocumented in this encounter
--- OUTSIDE RECORDS SUMMARY | 2024-08-12 10:04 | XMS_ITS | Clinical Summary ---
Author Organization [facility] Address [address] [place] [address] Care Team Providers Care Asl Interpreter Name Role Phone Unavailable Primary Care Provider Unavailabl e Source Comments [facility],non-owned Affiliates and Associated Physician Practices is amultiple site organization consisting of ambulatory clinics and hospital sitesin [place], [place], [place] and [place]. This disclosure is being madepursuant to the Care Everywhere program and may not contain all information available regarding this patient. Last updated 18.[facility] Social History Tobacco Use Types Packs/Day Years [...] on patient's age to complete this topic Insurance [facility]
--- OUTSIDE RECORDS SUMMARY | 2024-08-12 10:04 | XMS_ITS | Encounter Summary ---
Author Organization [facility] Address [address] [facility] [place] [address] Care Team Providers Care Rag Cutting Machine Feeder Name Role Phone Unavailable Primary Care Provider Unavailabl e Encounter Details Date Type Department Care Team (Late st Contact Info) Description 12/22/2018 Lab Requisition [facility] DermPath Lab [address] [facility], [place] [address] Jyoti Hunt MD [address] [facility] 3 DE[place] [address] Social History Tobacco Use Types Packs/Day Years [...] AM CDT) Case Report Dermatopathology Report Case: [id number] Authorizing Provider: Jyoti Hunt MD Collected: 12/21/2018 12:00 AM Ordering Location: [facility] DermPath Lab Received: 12/22/2018 12:12 PM Pathologist: Ryann Guaman MD Specimen: Skin, right cheek 9 1:39 PM CDT DERMATOPATHOLOGY LABORATORY Addendum 1 At the request of the diagnosing physician, the technical component for a GMS and a Gram test was performed by [facility] Dermatopathology Laboratory. 9 1:39 PM CDT [...] The specimen consists of a punch measuring [id number]. Jar 0. [facility] Dermatopathology Laboratory performed the technical component [...] determined by the Dermatopathology Laboratory at [facility], directed by Dr. Parish Stringer. These tests need not be, and therefore are not, approved by the [place] Food and Drug Administration. The tests are used for clinical purposes. 1:39 PM CDT DERMATOPATHOLOGY LABORATORY Pathology/Cytolog y TISSUE SPECIMEN FROM SKIN / Unknown 12/21/2018 12/22/2018 12:12 PM CDT us Jyoti Hunt MD LAB - PATHOLOGY/CYTOLOGY ORD ERABLES Edited Result - Final DERMATOPATHOLOGY LABORATORY [facility] - Department of Dermatology [facility] [facility], 5th [place] [address], [facility] [phone] documented in this encounter Visit Diagnoses Not on filedocumented in this encounter
--- OUTSIDE RECORDS SUMMARY | 2024-08-12 10:04 | XMS_ITS | Clinical Summary ---
Author Organization [facility] Address [address] [place] [phone] Phone Care Team Providers Care Letter Of Credit Document Examiner Name Role Phone Unavailable Primary Care Provider Unavailabl e Allergies No known active allergies Medications Multiple Vitamin (multivitamin) tablet Take 1 tablet by mouth 1 (one) time each day Active meloxicam (MOBIC) 15 MG tablet Take 15 mg by mouth 1 (one) time each day if needed Active ergocalciferol (VITAMIN D-2) 1.25 MG (76827 UT) capsule Take 50,000 Units by mouth 1 (one) time per week Active hydroxychloroqu ine (PLAQUENIL) 200 MG tablet Take by mouth 2 (two) times a day Active pimecrolimus (ELIDEL) 1 % cream Apply topically 2 (two) times a day Active Ivermectin (Soolantra) 1 % cream Apply topically 1 (one) time each day in the evening Active ivermectin (STROMECTOL) 3 MG tablet Take 12 mg by mouth if needed Active sertraline (ZOLOFT) 25 MG tablet Take 25 mg by mouth 1 (one) time each day Active Active Problems Problem Noted Date Diagnosed Date Seronegative rheumatoid arthritis 11/15/2020 Abnormal renal function test 11/14/2020 Resolved Problems Problem Noted Date Diagnosed Date Resolved Date Vitamin D deficiency 11/15/2020 023 Social History Tobacco Use Types Packs/Day Years Used Date Smoking Tobacco: Never Smokeless Tobacco: Never Alcohol Use Standard Drinks/Week Comments Not Currently 0 (1 standard drink = 0.6 oz pur e alcohol) Comments Unknown Sex and Gender Information Value Date Recorded Sex Assigned at Not on file Legal Sex Female 2:25 PM MDT Gender Identity Not on file Sexual Orientation Not on file Last Filed Vital Signs Vital Sign Reading Time Taken Comments Blood Pressure 134/90 11/16/2020 4:05 PM CDT Pulse 65 11/16/2020 4:05 PM CDT Temperature - - Respiratory Rate - - Oxygen Saturation - - Inhaled Oxygen Concentration - - Weight 75.3 kg (166 lb) 11/16/2020 4:05 PM CDT Height 165.1 cm (5' 5 ) 11/16/2020 4:05 PM CDT Body Mass Index 27.62 11/16/2020 4:05 PM CDT Plan of Treatment Health Maintenance Due Date Last Done Comments COVID-19 Vaccine ( season) 2023, 07/04/2020 Influenza Vaccine (Season Ended) 2024 Insurance
--- OUTSIDE RECORDS SUMMARY | 2024-08-12 10:04 | XMS_ITS | Encounter Summary ---
Author Organization [facility] Address [address] [place] [address] Care Team Providers Care Milk Wagon Driver Name Role Phone Marguerite Alonso PA-C Primary Care Provider [phone] Halima Peralta Primary Care Provider [phone] Encounter Details Date Type Department Care Team (Late st Contact Info) Description 09/19/2018 Abstract [facility] CONVERSION [address] [address] [place] [id number] , Generic ConversionMD Social History Tobacco Use [...] on filedocumented in this encounter Care Teams Milk Wagon Driver Relationship Specialty Start Date End Date Marguerite Alonso PA-C PCP - General 02/20/16 01/30/23 Halima Peralta PA [address] [place] [id number] PCP - General 01/31/23 documented as of this encounter
--- OUTSIDE RECORDS SUMMARY | 2024-08-12 10:04 | XMS_ITS | Data Portability ---
Author Organization [facility] , [facility] Address [address] [place] [address] Assessment No assessment recorded. Plan of Treatment Reminders Order Date Submit Date Provider Last Modified By Organization Details Last Modified Time Details Appointments None recorded. Lab HPV E6+E7 mRNA, qualitative PCR, cervix 2023 024 [facility], [address] [place], [address], 4 09:15:23 pap, LB 2023 024 [facility], [address] [place], [address], 4 09:33:16 Referral None recorded. Procedures None recorded. Surgeries None recorded. Imaging None recorded. Medication Orders None recorded. Patient TargetsNo targets recorded. Patient Instructions Encounter Date Encounter Id Patient Instructions Last Modified By Organization Details Last Modified Time 03/22/2024 [id number] body mass index: care instructions [email or web address] Not [...] l cervi stephane cytol ogy. Not Available [facility] [address] [place], [address], 03/25/2024 09:15:23 03/22/2004/02/2024 THINP REP TIS PAP clinical information: normal None given Not Available [address] [address] [place], [address], 04/02/2024 09:33:16 03/22/20 24 04/02/2024 THINP REP TIS PAP LMP: normal NONE GIVEN Not Available [address] [address] [place], [address], 04/02/2024 09:33:16 03/22/20 24 04/02/2024 THINP REP TIS PAP prev. Pap: normal NONE GIVEN Not Available [address] [address] [place], [address], 04/02/2024 09:33:16 03/22/20 24 04/02/2024 THINP REP TIS PAP prev. BX: normal NONE GIVEN Not Available [address] [address] [place], [address], 04/02/2024 09:33:16 03/22/20 24 04/02/2024 THINP REP TIS PAP source: normal Cervi x Not Available [address] [address] [place], [address], 04/02/2024 09:33:16 03/22/20 24 04/02/2024 THINP REP TIS PAP statement of adequacy: Speci men proce ssed and exami otf, but unsat isfac tory for evalu ation due to an insuf ficie nt numbe r of squam ous cells . Not Available [address] [address] [place], [address], 04/02/2024 09:33:16 03/22/20 24 04/02/2024 THINP REP TIS PAP interpretati on/result: Cytol ogy Resul ts: Unabl e to provi de inter preta tion due to unsat isfac tory speci men adequ acy. Not Available [facility] [address] [place], [address], 04/02/2024 09:33:16 03/22/20 24 04/02/2024 THINP REP [...] is not recom mayra d. Not Available [address] [address] [place], [address], 04/02/2024 09:33:16 03/22/20 24 04/02/2024 THINP REP TIS PAP cytotechnolo gist: normal YQ, CT( CP) CT scree venita locat ion: [address] [address] [place] [address] Not Available [facility] [address] [address] [place], [address], 04/02/2024 09:33:16 03/22/20 24 04/02/2024 THINP REP TIS PAP review cytotechnolo gist: normal SHERMAN, CT( CP) CT Scree venita locat ion: [address] [place] [address] Not Available [address] [address] [place], [address], 04/02/2024 09:33:16 03/22/20 24 04/02/2024 THINP REP [...] clini stephane infor jer[place]o n. Not Available [facility] [address] [address], [place], [address], 04/02/2024 09:33:16 Result Notes None recorded. Problems Name Problem SNOMED Code Status Onset Date Resolution Date Notes Provider Name and Address Organization Details Recorded Time Sampling of vagina for Papanicola ou smear Active 2020 Encounter for gynecologic al examination (general) (routine) without abnormal findings; Progress: Stable Added By: Rocío Burnette Add to Current Problems: YES ProblemStat us: Current Not Available [facility] 2 21:54:47 Screening for malignant neoplasm of cervix Active 2020 Encounter for screening for malignant neoplasm of cervix; Progress: Stable Added By: Rocío Burnette Add to Current Problems: YES ProblemStat us: Current Not Available [facility] 2 21:54:47 Problem Notes None recorded. Procedures Surgical History Date Name Laterality Status Provider Name and Address Organization Details Recorded Time 4 Date of Last Pap Smear completed ZACK SANABRIA DO [facility], [place], [address], [email or web address] IV 04/10/2024 11:17:45 3 Most Recent Mammogram completed [facility] 03/22/2024 15:40:32 2 Date of Last Colonoscopy completed [facility] [email or web address] 03/22/2024 15:53:27 9 Most Recent Bone Density completed [facility] 03/22/2024 15:40:32 Gall bladder completed [facility] 03/22/2024 15:40:55 Imaging Results None recorded. Procedure Notes None recorded. Medical Equipment None Reported. Allergies No known drug allergies Medications Name Sig Start Date Stop Date Status Note LastModified by Organization Details LastModified Time meloxicam 15 mg tablet take 1 tablet (15 mg) by oral route once daily 03/22 completed meloxica m 15 mg oral tablet RxNorm: 212860 Refill Denied: No Refill DateOccu rred: 01/30/20 [...] Updated DateTime 4 165.1 cm 33.6 kg/m2 16965.3 8 g 97.7 [degF] 122 mm[Hg] 68 mm[Hg] Tammy Mares [email or web address] 4 15:50:53 Social History Question Answer Notes LastModified by Organizat ion Details LastModified Time Tobacco Smoking Status Never Smoker Tammy stewart, [email or web address] [facility] 03/22/2024 15:40:48 What Is Your Level [...] SNOMED-CT Code Diagnosis ICD10 Code Diagnosis Note [id number] ZACK SANABRIA DO [facility] [address] [place] [address] 03/22/2024 15:28:44 03/22/2024 16:33:11 Gynecologic examination 58250292 Z01.419 58 y.o. here for annual exam.- [...] PRN Screening for malignant neoplasm of cervix 058543980 Z12.4 Screening for malignant neoplasm of breast 343454868 Z12.31 Depression screening 171 446695 Z13.31 refer to intake screening Health Concerns Section Related Observation LastModified by Organization Detai ls LastModified Time None Recorded Concern Status LastModified by Organization Details LastModified Time None Recorded Advance Directives Directive None Recorded Payers Encounter Date Sequence Insurance Name Policy Number Policy Griffin Covered Member ID Griffin Member ID Guarantor Name 03/22/2024 1 [employer] [id number] Paddy Whaley [id number] Haylee Whaley Notes Date Note Type [...] Psychological symptoms:No depression; No PMDD ZACK SANABRIA, [address] [facility], [place], [address], [facility] 03/22/2024 16:31:04 OBGyn Episode No OBEpisode recorded.
== END 2024-08-12 09:33 | disposition home or self-care (01) ==
PROVIDERS: PCP Physician Assistant Medical; Visit Provider Internal Medicine Endocrinology, Diabetes & Metabolism
DX: E04.2 Nontoxic multinodular goiter (principal)
CPT/HCPCS: 76536